=== PATIENT | male | born 1950 | race Caucasian/White ===

== ENCOUNTER 2020-10-16 21:48 | Emergency (ER) | payer OTHER ==
[~2020-10-16 21:48] MED LIST: ATORVASTATIN CA10 MG PO; AUGMENTIN 875-1 EACH PO; CLOPIDOGREL75 MG PO; ENULOSE10 GM/15 M PO; GABAPENTIN800 MG PO; LOPRESSOR 25 MG25 MG PO; MEGACE TAB 40 M40 MG PO; METFORMIN HCL1000 MG PO; MORPHINE SULFAT60 M1 PO; OXYCODONE-ACET1 EACH PO; PLETAL 100 MG100 MG PO; VENTOLIN HFA 66.7 GM INH; VITAMIN D21250 MCG PO
[2020-10-16] MEDS ORDERED: AUGMENTIN 875-1 EACH PO (22:48)
[2020-10-16] MEDS ORDERED: PREDNISONE10 MG PO (22:48)
== END 2020-10-16 22:50 | disposition home or self-care (01) ==
LOC: ER1 21:48
DX: J44.9 Chronic obstructive pulmonary disease, unspecified (principal); I10 Essential (primary) hypertension; E11.9 Type 2 diabetes mellitus without complications; F17.210 Nicotine dependence, cigarettes, uncomplicated; Z79.899 Other long term (current) drug therapy
CPT/HCPCS: 71045; 99283

== ENCOUNTER 2020-12-17 15:17 | Emergency (ER) | payer OTHER ==
[~2020-12-17 15:17] MED LIST changes: +PREDNISONE10 MG PO
== END 2020-12-17 16:45 | disposition left against medical advice (07) ==
LOC: ER1 15:17
DX: R05 Cough (principal); R68.83 Chills (without fever); E11.51 Type 2 diabetes mellitus with diabetic peripheral angiopathy without gangrene; J44.9 Chronic obstructive pulmonary disease, unspecified; F17.200 Nicotine dependence, unspecified, uncomplicated; I10 Essential (primary) hypertension; Z95.5 Presence of coronary angioplasty implant and graft; Z90.49 Acquired absence of other specified parts of digestive tract
CPT/HCPCS: 71046; 93005; 99283

== ENCOUNTER → 2021-03-04 | Outpatient (CLI) | payer OTHER | LOC: KOH-I 09:00 | DX: I71.4 Abdominal aortic aneurysm, without rupture (principal); I25.10 Atherosclerotic heart disease of native coronary artery without angina pectoris; I73.9 Peripheral vascular disease, unspecified | CPT/HCPCS: 93925; 93979 ==

== ENCOUNTER 2021-04-09 17:09 | Inpatient (IN) | payer OTHER ==
[~2021-04-09] VITALS: Ht 175.3 cm; Wt 54.0 kg
[~2021-04-09 17:09] MED LIST changes: -ENULOSE10 GM/15 M PO; -GABAPENTIN800 MG PO; -OXYCODONE-ACET1 EACH PO
[2021-04-09 18:22] LABS: HEMOGLOBIN 15.2 gm/dl (14.0-17.5); RED BLOOD COUNT 4.76 M/UL (4.20-5.50); WHITE BLOOD COUNT 8.9 K/UL (4.5-11.0)
[2021-04-09 19:23] LABS: BUN/CREATININE RATIO 18 (0-10)
[2021-04-10 06:49] LABS: HEMOGLOBIN 16.1 gm/dl (14.0-17.5); RED BLOOD COUNT 5.01 M/UL (4.20-5.50); WHITE BLOOD COUNT 10.9 K/UL (4.5-11.0)
[2021-04-10 07:24] LABS: BUN/CREATININE RATIO 20 (0-10)
[2021-04-10] MEDS ORDERED: GABAPENTIN800 MG PO (09:31)
[2021-04-10] MEDS ORDERED: OXYCODONE-ACET1 EACH PO (09:31)
[2021-04-10] MEDS ORDERED: ENULOSE10 GM/15 M PO (09:32)
--- NOTE | 2021-04-10 10:11 | NUR ---
0815- NOTIFIED DR KELLY OF CRITICAL POTASSIUM 3.0 AND HYPERTENSION. NEW ORDERS NOTED.
[2021-04-10] MEDS ORDERED: SINGULAIR10 MG PO (16:12)
[2021-04-10] MEDS ORDERED: ALBUTEROL2.5 MG/3 M NEB (16:13)
[2021-04-10] MEDS ORDERED: BUMETANIDE1 MG PO (16:14)
[2021-04-10] MEDS ORDERED: TRELEGY ELLIPT1 EACH INH (16:15)
[2021-04-10] MEDS ORDERED: BEVESPI AEROS10.7 GM INH (16:16)
[2021-04-10] MEDS ORDERED: CLARITIN10 MG PO (16:18)
[2021-04-10] MEDS ORDERED: NITROSTAT0.4 MG SL (16:21)
[2021-04-10] MEDS ORDERED: DALIRESP500 MCG PO (16:21)
[2021-04-10] MEDS ORDERED: OMEPRAZOLE20 MG PO (16:21)
[2021-04-10] MEDS ORDERED: MAGOX 400400 MG PO (16:23)
[2021-04-10] MEDS ORDERED: MUCINEX600 MG PO (16:24)
[2021-04-11 03:08] LABS: HEMOGLOBIN 15.8 gm/dl (14.0-17.5); RED BLOOD COUNT 4.92 M/UL (4.20-5.50); WHITE BLOOD COUNT 14.7 K/UL (4.5-11.0)
[2021-04-11 03:55] LABS: BUN/CREATININE RATIO 19 (0-10)
--- NOTE | 2021-04-11 16:00 | NUR ---
1558- NOTIFIED MD OF PATIENT COMPLAINTS WITH LEG PAIN. NEW ORDER NOTED
[2021-04-12 06:28] LABS: RED BLOOD COUNT 5.03 M/UL (4.20-5.50); WHITE BLOOD COUNT 11.4 K/UL (4.5-11.0)
[2021-04-12 07:03] LABS: BUN/CREATININE RATIO 21 (0-10)
[2021-04-13 05:45] LABS: HEMOGLOBIN 16.4 gm/dl (14.0-17.5); RED BLOOD COUNT 5.12 M/UL (4.20-5.50); WHITE BLOOD COUNT 11.9 K/UL (4.5-11.0)
[2021-04-13 06:04] LABS: BUN/CREATININE RATIO 13 (0-10)
[2021-04-13] MEDS ORDERED: IPRAT-ALBUT 0.5-3 ML NEB (07:45)
[2021-04-13] MEDS ORDERED: ACETAMINOPHEN325 MG PO (07:45)
[2021-04-13] MEDS ORDERED: AUGMENTIN 875-1 EACH PO ×2 (09:14→09:15)
[2021-04-14 11:44] LABS: HEMOGLOBIN 15.9 gm/dl (14.0-17.5); RED BLOOD COUNT 4.97 M/UL (4.20-5.50); WHITE BLOOD COUNT 12.4 K/UL (4.5-11.0)
[2021-04-14 12:20] LABS: BUN/CREATININE RATIO 14 (0-10)
[2021-04-15 08:23] LABS: WHITE BLOOD COUNT 9.7 K/UL (4.5-11.0)
[2021-04-15 08:24] LABS: RED BLOOD COUNT 4.47 M/UL (4.20-5.50)
[2021-04-15 08:45] LABS: BUN/CREATININE RATIO 15 (0-10)
[2021-04-16 06:48] LABS: RED BLOOD COUNT 4.41 M/UL (4.20-5.50); WHITE BLOOD COUNT 10.8 K/UL (4.5-11.0)
[2021-04-16 07:27] LABS: BUN/CREATININE RATIO 8 (0-10)
[2021-04-17 03:50] LABS: HEMOGLOBIN 13.2 gm/dl (14.0-17.5); RED BLOOD COUNT 4.18 M/UL (4.20-5.50); WHITE BLOOD COUNT 11.8 K/UL (4.5-11.0)
[2021-04-17 04:28] LABS: BUN/CREATININE RATIO 13 (0-10)
[2021-04-17] MEDS ORDERED: MEGACE 400400 MG/10 PO (08:56)
[2021-04-17] MEDS ORDERED: IPRAT-ALBUT 0.5-3 ML NEB ×2 (08:56→09:07)
[2021-04-17] MEDS ORDERED: VITAMIN B-121000 MCG PO (08:56)
[2021-04-17] MEDS ORDERED: K-TAB ER20 MEQ PO (08:56)
[2021-04-17] MEDS ORDERED: NEURONTIN 100100 MG PO (08:56)
[2021-04-17] MEDS ORDERED: AUGMENTIN 875-1 EACH PO (08:56)
[2021-04-17] MEDS ORDERED: BUDESONIDE0.5 MG/2 M NEB (09:07)
[2021-04-17] MEDS ORDERED: PROTONIX 40 MG40 M1 PO (09:17)
--- NOTE | 2021-04-17 15:19 | NUR ---
EMS CONTACTED ND STATED THAT IT WOULD BE AROUND 3 HOURS FOR TRANSPORT AT THIS TIME. 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
[2021-04-17] MEDS ORDERED: LIPITOR40 MG PO (17:06)
== END 2021-04-17 19:51 | DRG 91 ==
LOC: ER1 17:09 → CDU 22:32 → ER1 22:32 → CDU 04-10 01:43 → MED SURG 4 04-10 01:43 → ER1 04-10 01:43 → MED SURG 4 04-10 04:56 → CDU 04-10 04:56 → MED SURG 4 04-17 19:51
PROVIDERS: Family Medicine; Internal Medicine; Surgery; ADMIT Internal Medicine
PROC: 0DB78ZX Excision of Stomach, Pylorus, Via Natural or Artificial Opening Endoscopic, Diagnostic (ICD-10-PCS; 2021-04-16)
PROC: 0DB68ZX Excision of Stomach, Via Natural or Artificial Opening Endoscopic, Diagnostic (ICD-10-PCS; principal; 2021-04-16 08:30)
DX: G92 Toxic encephalopathy (principal); E43 Unspecified severe protein-calorie malnutrition; J18.9 Pneumonia, unspecified organism; Z20.822 Contact with and (suspected) exposure to COVID-19; R64 Cachexia; Z68.1 Body mass index [BMI] 19.9 or less, adult; J44.0 Chronic obstructive pulmonary disease with (acute) lower respiratory infection; I10 Essential (primary) hypertension; I25.10 Atherosclerotic heart disease of native coronary artery without angina pectoris; F17.210 Nicotine dependence, cigarettes, uncomplicated; T40.2X5A Adverse effect of other opioids, initial encounter; F03.90 Unspecified dementia, unspecified severity, without behavioral disturbance, psychotic disturbance, mood disturbance, and anxiety; K21.00 Gastro-esophageal reflux disease with esophagitis, without bleeding; K29.00 Acute gastritis without bleeding; E87.6 Hypokalemia; G89.4 Chronic pain syndrome; E55.9 Vitamin D deficiency, unspecified; N20.0 Calculus of kidney; J44.9 Chronic obstructive pulmonary disease, unspecified; R31.29 Other microscopic hematuria; E11.51 Type 2 diabetes mellitus with diabetic peripheral angiopathy without gangrene; Z79.4 Long term (current) use of insulin; Z95.5 Presence of coronary angioplasty implant and graft; Z95.1 Presence of aortocoronary bypass graft
CPT/HCPCS: 36415; 36600; 70450; 70551; 71045; 71250; 74019; 80048; 80053; 80307; 81001; 82140; 82550; 82553; 82607; 82803; 82962; 83735; 83874; 84132; 84439; 84443; 84484; 85025; 85027; 86140; 93005; 94640; 94664; 94760; 96374; 96375; 97110-GP-CQ; 97116-GP-CQ; 97162; 97530; 99285; J0696; J1650; J2310; J2405; J2704; J3420; J3475; J3480; J7030; U0002

== ENCOUNTER 2021-07-02 16:11 | Inpatient (IN) | payer OTHER ==
[~2021-07-02] VITALS: Ht 175.3 cm; Wt 62.6 kg
[~2021-07-02 16:11] MED LIST changes: +ACETAMINOPHEN325 MG PO; +ALBUTEROL2.5 MG/3 M NEB; +BEVESPI AEROS10.7 GM INH; +BUDESONIDE0.5 MG/2 M NEB; +BUMETANIDE1 MG PO; +CLARITIN10 MG PO; +DALIRESP500 MCG PO; +ENULOSE10 GM/15 M PO; +GABAPENTIN800 MG PO; +IPRAT-ALBUT 0.5-3 ML NEB; +K-TAB ER20 MEQ PO; +LIPITOR40 MG PO; +MAGOX 400400 MG PO; +MEGACE 400400 MG/10 PO; +MUCINEX600 MG PO; +NEURONTIN 100100 MG PO; +NITROSTAT0.4 MG SL; +OMEPRAZOLE20 MG PO; +OXYCODONE-ACET1 EACH PO; +PROTONIX 40 MG40 M1 PO; +SINGULAIR10 MG PO; +TRELEGY ELLIPT1 EACH INH; +VITAMIN B-121000 MCG PO
[2021-07-02 18:48] LABS: HEMOGLOBIN 12.6 gm/dl (14.0-17.5); RED BLOOD COUNT 4.1 M/UL (4.20-5.50); WHITE BLOOD COUNT 17.5 K/UL (4.5-11.0)
[2021-07-02 19:17] LABS: BUN/CREATININE RATIO 24 (0-10)
[2021-07-03 03:06] LABS: HEMOGLOBIN 11.3 gm/dl (14.0-17.5); RED BLOOD COUNT 3.62 M/UL (4.20-5.50); WHITE BLOOD COUNT 13.3 K/UL (4.5-11.0)
[2021-07-03 03:31] LABS: BUN/CREATININE RATIO 22 (0-10)
[2021-07-04 02:26] LABS: HEMOGLOBIN 11.5 gm/dl (14.0-17.5); RED BLOOD COUNT 3.75 M/UL (4.20-5.50); WHITE BLOOD COUNT 10.4 K/UL (4.5-11.0)
[2021-07-04 02:47] LABS: BUN/CREATININE RATIO 12 (0-10)
[2021-07-05 07:09] LABS: HEMOGLOBIN 11.9 gm/dl (14.0-17.5); RED BLOOD COUNT 3.83 M/UL (4.20-5.50)
[2021-07-05 07:23] LABS: BUN/CREATININE RATIO 19 (0-10)
[2021-07-05 07:24] LABS: WHITE BLOOD COUNT 7.7 K/UL (4.5-11.0)
[2021-07-05] MEDS ORDERED: ENDOCET 7.5-321 EACH PO (10:49)
[2021-07-05] MEDS ORDERED: LOVENOX40 MG/0.4 SQ (10:49)
[2021-07-06 04:14] LABS: HEMOGLOBIN 11.3 gm/dl (14.0-17.5); RED BLOOD COUNT 3.62 M/UL (4.20-5.50)
[2021-07-06 04:31] LABS: BUN/CREATININE RATIO 17 (0-10)
[2021-07-07 06:53] LABS: HEMOGLOBIN 12.6 gm/dl (14.0-17.5)
[2021-07-07 06:54] LABS: RED BLOOD COUNT 4.06 M/UL (4.20-5.50)
[2021-07-07 07:33] LABS: BUN/CREATININE RATIO 24 (0-10)
[2021-07-08 02:34] LABS: WHITE BLOOD COUNT 11.9 K/UL (4.5-11.0)
[2021-07-08 02:49] LABS: RED BLOOD COUNT 3.6 M/UL (4.20-5.50)
[2021-07-08 03:00] LABS: BUN/CREATININE RATIO 26 (0-10)
[2021-07-08] MEDS ORDERED: BUMETANIDE1 MG PO (10:57)
[2021-07-08] MEDS ORDERED: OMNICEF 300 MG300 MG PO (10:58)
[2021-07-08] MEDS ORDERED: ALBUTEROL1.25 MG/3 INH (13:20)
[2021-07-08] MEDS ORDERED: FUROSEMIDE20 MG PO (13:41)
[2021-07-08] MEDS ORDERED: METOCLOPRAMIDE H5 MG PO (13:42)
[2021-07-08] MEDS ORDERED: TRELEGY ELLIPT1 EACH INH (13:42)
[2021-07-08] MEDS ORDERED: BEVESPI AEROS10.7 GM INH (13:43)
[2021-07-08] MEDS ORDERED: MS CONTIN TAB S60 MG PO (13:43)
[2021-07-08] MEDS ORDERED: GABAPENTIN300 MG PO (13:44)
[2021-07-08] MEDS ORDERED: DALIRESP 500500 MCG PO (14:02)
[2021-07-08] MEDS ORDERED: MEGACE 400400 MG/10 PO (14:02)
[2021-07-08] MEDS ORDERED: MAG-OX 400 TAB400 MG PO (14:02)
[2021-07-08] MEDS ORDERED: PERCOCET 5/325 T1 EA PO (14:26)
[2021-07-08] MEDS ORDERED: VITAMIN D21250 MCG PO (14:27)
[2021-07-08] MEDS ORDERED: CLARITIN10 MG PO (14:27)
[2021-07-08] MEDS ORDERED: VITAMIN B-121000 MC2 SL (14:28)
[2021-07-08] MEDS ORDERED: PROTONIX40 MG PO (14:29)
[2021-07-08] MEDS ORDERED: PROVENTIL HFA6.7 GM INH (14:30)
[2021-07-08] MEDS ORDERED: LOVENOX40 MG/0.4 SQ (15:20)
[2021-07-08] MEDS ORDERED: GABAPENTIN100 MG PO (15:20)
== END 2021-07-08 16:53 | DRG 480 ==
LOC: ER1 16:11 → CDU 20:18 → M/S 20:18
PROVIDERS: Internal Medicine; Orthopaedic Surgery; Physician Assistant; Preventive Medicine Occupational Medicine; ADMIT Internal Medicine
PROC: B24BZZZ Ultrasonography of Heart with Aorta (ICD-10-PCS; 2021-07-03)
PROC: 0QS604Z Reposition Right Upper Femur with Internal Fixation Device, Open Approach (ICD-10-PCS; principal; 2021-07-05 09:09)
DX: S72.141A Displaced intertrochanteric fracture of right femur, initial encounter for closed fracture (principal); I50.23 Acute on chronic systolic (congestive) heart failure; J18.9 Pneumonia, unspecified organism; D62 Acute posthemorrhagic anemia; E44.0 Moderate protein-calorie malnutrition; E87.6 Hypokalemia; Z20.822 Contact with and (suspected) exposure to COVID-19; I11.0 Hypertensive heart disease with heart failure; I25.10 Atherosclerotic heart disease of native coronary artery without angina pectoris; I73.9 Peripheral vascular disease, unspecified; K29.70 Gastritis, unspecified, without bleeding; I08.1 Rheumatic disorders of both mitral and tricuspid valves; K21.9 Gastro-esophageal reflux disease without esophagitis; D51.3 Other dietary vitamin B12 deficiency anemia; F17.210 Nicotine dependence, cigarettes, uncomplicated; J44.9 Chronic obstructive pulmonary disease, unspecified; E11.9 Type 2 diabetes mellitus without complications; W18.30XA Fall on same level, unspecified, initial encounter; Y93.89 Activity, other specified; Z99.81 Dependence on supplemental oxygen; Z95.1 Presence of aortocoronary bypass graft; Z95.5 Presence of coronary angioplasty implant and graft; Y92.89 Other specified places as the place of occurrence of the external cause; Z90.49 Acquired absence of other specified parts of digestive tract; Y99.8 Other external cause status; Z87.442 Personal history of urinary calculi; Z79.4 Long term (current) use of insulin; Z82.49 Family history of ischemic heart disease and other diseases of the circulatory system
CPT/HCPCS: ECHO; 36415; 36600; 70450; 71045; 71250; 73502; 73552; 76000; 80048; 80053; 80307; 81001; 82009; 82140; 82550; 82553; 82803; 82962; 83036; 83605; 83690; 83735; 83874; 83880; 84132; 84484; 85025; 85027; 85652; 86140; 86850; 86900; 86901; 87040; 87086; 93005; 93306; 94640; 94664; 94760; 94762; 96374; 97110; 97110-GP-CQ; 97116-GP-CQ; 97162; 97166; 97530; 97530-GP-CQ; 99285; G0480; J0456; J0696; J1650; J2270; J3475; J3486; J7030; J7120; U0002

== ENCOUNTER 2021-07-19 03:09 | Inpatient (IN) | payer OTHER ==
[~2021-07-19] VITALS: Ht 175.3 cm; Wt 51.3 kg
[~2021-07-19 03:09] MED LIST changes: +ALBUTEROL1.25 MG/3 INH; +DALIRESP 500500 MCG PO; +ENDOCET 7.5-321 EACH PO; +FUROSEMIDE20 MG PO; +GABAPENTIN100 MG PO; +GABAPENTIN300 MG PO; +LOVENOX40 MG/0.4 SQ; +MAG-OX 400 TAB400 MG PO; +METOCLOPRAMIDE H5 MG PO; +MS CONTIN TAB S60 MG PO; +OMNICEF 300 MG300 MG PO; +PERCOCET 5/325 T1 EA PO; +PROTONIX40 MG PO; +PROVENTIL HFA6.7 GM INH; +VITAMIN B-121000 MC2 SL
[2021-07-19 03:58] LABS: HEMOGLOBIN 12.5 gm/dl (14.0-17.5); RED BLOOD COUNT 4.02 M/UL (4.20-5.50); WHITE BLOOD COUNT 18.9 K/UL (4.5-11.0)
[2021-07-19 04:15] LABS: BUN/CREATININE RATIO 35 (0-10)
[2021-07-19] MEDS ORDERED: METOPROLOL TART25 MG PO (10:19)
[2021-07-19] MEDS ORDERED: VITAMIN D21250 MCG PO (10:19)
[2021-07-19] MEDS ORDERED: ENOXAPARIN40 MG/0.4 SQ (10:19)
[2021-07-19] MEDS ORDERED: LACTULOSE10 GM/15 M PO (10:20)
[2021-07-19] MEDS ORDERED: ATORVASTATIN CA40 MG PO (10:20)
[2021-07-19] MEDS ORDERED: CLOPIDOGREL75 MG PO (10:20)
[2021-07-19] MEDS ORDERED: MONTELUKAST SOD10 MG PO (10:21)
[2021-07-19] MEDS ORDERED: PROTONIX40 MG PO (10:21)
[2021-07-19] MEDS ORDERED: NITROGLYCERIN0.4 MG SL (10:21)
[2021-07-19] MEDS ORDERED: MUCINEX600 MG PO (10:22)
[2021-07-19] MEDS ORDERED: TRELEGY ELLIPT1 EACH INH (10:22)
[2021-07-19] MEDS ORDERED: DALIRESP500 MCG PO (10:23)
[2021-07-19] MEDS ORDERED: METFORMIN HCL1000 MG PO (10:23)
[2021-07-19] MEDS ORDERED: MORPHINE SULFAT30 M4 PO (10:24)
[2021-07-19] MEDS ORDERED: OXYCODON-ACETA1 EAC1 PO (10:24)
[2021-07-19] MEDS ORDERED: VITAMIN B-121000 MCG PO (10:25)
[2021-07-19] MEDS ORDERED: MEGACE 400400 MG/10 PO (10:25)
[2021-07-20 06:15] LABS: HEMOGLOBIN 11.5 gm/dl (14.0-17.5); RED BLOOD COUNT 3.76 M/UL (4.20-5.50)
[2021-07-20 06:19] LABS: WHITE BLOOD COUNT 11.1 K/UL (4.5-11.0)
[2021-07-20 07:12] LABS: BUN/CREATININE RATIO 29 (0-10)
--- NOTE | 2021-07-20 18:43 | NUR ---
RUPERTO REMOVED TO RIGHT HIP AND STERI STRIPS APPLIED, PT TOLERATED WELL.
[2021-07-21 05:55] LABS: HEMOGLOBIN 10.9 gm/dl (14.0-17.5); RED BLOOD COUNT 3.67 M/UL (4.20-5.50); WHITE BLOOD COUNT 8.5 K/UL (4.5-11.0)
[2021-07-21 06:39] LABS: BUN/CREATININE RATIO 20 (0-10)
[2021-07-22 05:41] LABS: HEMOGLOBIN 10.9 gm/dl (14.0-17.5); RED BLOOD COUNT 3.6 M/UL (4.20-5.50); WHITE BLOOD COUNT 8.3 K/UL (4.5-11.0)
[2021-07-22 06:32] LABS: BUN/CREATININE RATIO 22 (0-10)
[2021-07-23 06:58] LABS: HEMOGLOBIN 11.8 gm/dl (14.0-17.5); RED BLOOD COUNT 3.89 M/UL (4.20-5.50)
[2021-07-23 07:22] LABS: BUN/CREATININE RATIO 21 (0-10)
[2021-07-24 05:20] LABS: HEMOGLOBIN 12.4 gm/dl (14.0-17.5); RED BLOOD COUNT 4.09 M/UL (4.20-5.50); WHITE BLOOD COUNT 8.7 K/UL (4.5-11.0)
[2021-07-24 05:47] LABS: BUN/CREATININE RATIO 25 (0-10)
[2021-07-25 05:38] LABS: HEMOGLOBIN 11.6 gm/dl (14.0-17.5); RED BLOOD COUNT 3.83 M/UL (4.20-5.50); WHITE BLOOD COUNT 7.8 K/UL (4.5-11.0)
[2021-07-25 07:21] LABS: BUN/CREATININE RATIO 28 (0-10)
[2021-07-26 06:30] LABS: HEMOGLOBIN 12.1 gm/dl (14.0-17.5); RED BLOOD COUNT 3.96 M/UL (4.20-5.50); WHITE BLOOD COUNT 7.2 K/UL (4.5-11.0)
[2021-07-26 07:06] LABS: BUN/CREATININE RATIO 30 (0-10)
[2021-07-27 06:08] LABS: HEMOGLOBIN 10.4 gm/dl (14.0-17.5); RED BLOOD COUNT 3.46 M/UL (4.20-5.50); WHITE BLOOD COUNT 6.9 K/UL (4.5-11.0)
[2021-07-27 06:49] LABS: BUN/CREATININE RATIO 24 (0-10)
[2021-07-28 09:04] LABS: HEMOGLOBIN 10.3 gm/dl (14.0-17.5); RED BLOOD COUNT 3.36 M/UL (4.20-5.50); WHITE BLOOD COUNT 7.9 K/UL (4.5-11.0)
[2021-07-28 10:05] LABS: BUN/CREATININE RATIO 21 (0-10)
[2021-07-29 06:49] LABS: RED BLOOD COUNT 3.34 M/UL (4.20-5.50); WHITE BLOOD COUNT 7.9 K/UL (4.5-11.0)
[2021-07-29 07:25] LABS: BUN/CREATININE RATIO 18 (0-10)
[2021-07-30 07:47] LABS: BUN/CREATININE RATIO 17 (0-10)
[2021-07-30] MEDS ORDERED: BROVANA15 MCG/2 M NEB (12:14)
[2021-07-30] MEDS ORDERED: ASPIRIN EC81 MG PO (12:14)
[2021-07-30] MEDS ORDERED: COZAAR 25MG TAB25 MG PO (12:14)
[2021-07-30] MEDS ORDERED: GABAPENTIN100 MG PO (12:14)
[2021-07-30] MEDS ORDERED: HYDROCODON-ACE1 EAC2 PO (12:14)
[2021-07-30] MEDS ORDERED: IPRAT-ALBUT 0.5-3 ML NEB (12:14)
[2021-07-30] MEDS ORDERED: HUMALOG 10100 UNITS/ SC (12:14)
[2021-07-30 12:53] LABS: HEMOGLOBIN 10.7 gm/dl (14.0-17.5); RED BLOOD COUNT 3.53 M/UL (4.20-5.50)
== END 2021-07-30 23:00 | DRG 871 ==
LOC: ER1 03:09 → CDU 05:29 → MED SURG 4 05:29
PROVIDERS: Family Medicine; Internal Medicine; Physician Assistant; ADMIT Internal Medicine
DX: A41.9 Sepsis, unspecified organism (principal); G93.41 Metabolic encephalopathy; I50.23 Acute on chronic systolic (congestive) heart failure; Z20.822 Contact with and (suspected) exposure to COVID-19; J18.9 Pneumonia, unspecified organism; E43 Unspecified severe protein-calorie malnutrition; J69.0 Pneumonitis due to inhalation of food and vomit; I42.9 Cardiomyopathy, unspecified; Z68.1 Body mass index [BMI] 19.9 or less, adult; I11.0 Hypertensive heart disease with heart failure; E11.65 Type 2 diabetes mellitus with hyperglycemia; I35.0 Nonrheumatic aortic (valve) stenosis; E87.6 Hypokalemia; Z66 Do not resuscitate; I25.10 Atherosclerotic heart disease of native coronary artery without angina pectoris; I73.9 Peripheral vascular disease, unspecified; Y95 Nosocomial condition; E11.51 Type 2 diabetes mellitus with diabetic peripheral angiopathy without gangrene; E53.8 Deficiency of other specified B group vitamins; I65.22 Occlusion and stenosis of left carotid artery; J43.9 Emphysema, unspecified; F17.210 Nicotine dependence, cigarettes, uncomplicated; R91.8 Other nonspecific abnormal finding of lung field; I71.4 Abdominal aortic aneurysm, without rupture; R53.81 Other malaise; K29.50 Unspecified chronic gastritis without bleeding; K21.9 Gastro-esophageal reflux disease without esophagitis; J30.9 Allergic rhinitis, unspecified; Z95.5 Presence of coronary angioplasty implant and graft; Z90.49 Acquired absence of other specified parts of digestive tract; Z98.890 Other specified postprocedural states; Z82.49 Family history of ischemic heart disease and other diseases of the circulatory system; Z79.82 Long term (current) use of aspirin; Z79.899 Other long term (current) drug therapy
CPT/HCPCS: 36415; 36600; 51702; 70450; 71045; 71046; 71250; 73502; 80048; 80053; 80202; 81001; 82550; 82553; 82803; 82962; 83605; 83735; 83874; 83880; 84100; 84132; 84439; 84443; 84484; 85025; 85027; 85610; 86140; 87040; 92526; 92610; 93005; 94640; 94664; 94760; 97110; 97110-GP-CQ; 97161; 97166; 97530; 97530-GP-CQ; 99285; J1335; J1650; J2270; J3370; J7030; J7040; J7050; U0002

== ENCOUNTER 2021-08-21 15:37 | Inpatient (IN) | payer OTHER ==
[~2021-08-21] VITALS: Ht 175.3 cm; Wt 44.9 kg
[~2021-08-21 15:37] MED LIST changes: +ASPIRIN EC81 MG PO; +ATORVASTATIN CA40 MG PO; +BROVANA15 MCG/2 M NEB; +COZAAR 25MG TAB25 MG PO; +ENOXAPARIN40 MG/0.4 SQ; +HUMALOG 10100 UNITS/ SC; +HYDROCODON-ACE1 EAC2 PO; +LACTULOSE10 GM/15 M PO; +METOPROLOL TART25 MG PO; +MONTELUKAST SOD10 MG PO; +MORPHINE SULFAT30 M4 PO; +NITROGLYCERIN0.4 MG SL; +OXYCODON-ACETA1 EAC1 PO
[2021-08-21 17:04] LABS: HEMOGLOBIN 10.6 gm/dl (14.0-17.5); RED BLOOD COUNT 3.53 M/UL (4.20-5.50); WHITE BLOOD COUNT 9.8 K/UL (4.5-11.0)
[2021-08-21 17:36] LABS: BUN/CREATININE RATIO 21 (0-10)
[2021-08-22 04:32] LABS: HEMOGLOBIN 10.3 gm/dl (14.0-17.5); RED BLOOD COUNT 3.47 M/UL (4.20-5.50); WHITE BLOOD COUNT 8.9 K/UL (4.5-11.0)
[2021-08-22 04:58] LABS: BUN/CREATININE RATIO 12 (0-10)
[2021-08-22] MEDS ORDERED: GABAPENTIN400 MG PO (10:10)
[2021-08-22] MEDS ORDERED: HYDROCODON-ACE1 EAC6 PO (10:11)
[2021-08-22] MEDS ORDERED: LOSARTAN POTASS25 MG PO (10:16)
[2021-08-22] MEDS ORDERED: METFORMIN HCL500 MG PO (10:17)
[2021-08-22] MEDS ORDERED: NITROGLYCERIN0.4 MG SL (10:17)
[2021-08-22] MEDS ORDERED: BEVESPI AEROS10.7 GM INH (10:19)
[2021-08-22] MEDS ORDERED: POTASSIUM CHLO20 ME2 PO (10:21)
[2021-08-22] MEDS ORDERED: GUAIFENESI100 MG/5 M PO (10:22)
[2021-08-22] MEDS ORDERED: CLONAZEPAM1 MG PO (10:23)
[2021-08-22] MEDS ORDERED: DOXYCYCLINE MO100 MG PO (10:23)
[2021-08-22] MEDS ORDERED: PROAIR HFA8.5 GM INH (10:24)
[2021-08-22] MEDS ORDERED: AUGMENTIN 875-1 EACH PO (14:00)
== END 2021-08-22 16:05 | disposition home or self-care (01) | DRG 193 ==
LOC: ER1 15:37 → CDU 20:55
PROVIDERS: Preventive Medicine Occupational Medicine; ADMIT Internal Medicine
DX: J18.9 Pneumonia, unspecified organism (principal); J96.21 Acute and chronic respiratory failure with hypoxia; Z20.822 Contact with and (suspected) exposure to COVID-19; J44.0 Chronic obstructive pulmonary disease with (acute) lower respiratory infection; N39.0 Urinary tract infection, site not specified; G93.49 Other encephalopathy; E44.0 Moderate protein-calorie malnutrition; Z68.1 Body mass index [BMI] 19.9 or less, adult; I50.22 Chronic systolic (congestive) heart failure; I11.0 Hypertensive heart disease with heart failure; E11.9 Type 2 diabetes mellitus without complications; I25.10 Atherosclerotic heart disease of native coronary artery without angina pectoris; F03.90 Unspecified dementia, unspecified severity, without behavioral disturbance, psychotic disturbance, mood disturbance, and anxiety; D63.8 Anemia in other chronic diseases classified elsewhere; D64.9 Anemia, unspecified; K21.9 Gastro-esophageal reflux disease without esophagitis; I95.9 Hypotension, unspecified; Z95.5 Presence of coronary angioplasty implant and graft; Z90.49 Acquired absence of other specified parts of digestive tract; Z98.890 Other specified postprocedural states; Z79.4 Long term (current) use of insulin; Z79.899 Other long term (current) drug therapy; Z79.82 Long term (current) use of aspirin; Z79.02 Long term (current) use of antithrombotics/antiplatelets
CPT/HCPCS: 36415; 36600; 70450; 71045; 80053; 80307; 81001; 82009; 82140; 82550; 82553; 82803; 83605; 83690; 83735; 83874; 83880; 84439; 84443; 84484; 85025; 85652; 86140; 87040; 87086; 93005; 94640; 94664; 94760; 96374; 96375; 99285; G0480; J0456; J0692; J0696; J7030; U0002

== ENCOUNTER 2022-01-17 18:35 | Inpatient (IN) | payer OTHER ==
[~2022-01-17] VITALS: Ht 175.3 cm; Wt 76.4 kg
[~2022-01-17 18:35] MED LIST changes: +CLONAZEPAM1 MG PO; +DOXYCYCLINE MO100 MG PO; +GABAPENTIN600 MG PO; +GUAIFENESI100 MG/5 M PO; +HYDROCODON-ACE1 EAC6 PO; +LOSARTAN POTASS25 MG PO; +METFORMIN HCL500 MG PO; +POTASSIUM CHLO20 ME2 PO; +PROAIR HFA8.5 GM INH
[2022-01-17 19:18] LABS: RED BLOOD COUNT 4.84 M/UL (4.20-5.50); WHITE BLOOD COUNT 8.3 K/UL (4.5-11.0)
[2022-01-17 19:59] LABS: BUN/CREATININE RATIO 17 (0-10)
[2022-01-18 06:14] LABS: HEMOGLOBIN 12.8 gm/dl (14.0-17.5); RED BLOOD COUNT 4.45 M/UL (4.20-5.50); WHITE BLOOD COUNT 10.2 K/UL (4.5-11.0)
[2022-01-18 06:38] LABS: BUN/CREATININE RATIO 15 (0-10)
[2022-01-18] MEDS ORDERED: OXYCODONE HCL15 MG PO (16:55)
[2022-01-18] MEDS ORDERED: TRELEGY ELLIPT1 EACH INH (16:56)
[2022-01-18] MEDS ORDERED: FUROSEMIDE20 MG PO (16:57)
[2022-01-18] MEDS ORDERED: METFORMIN HCL500 MG PO (16:58)
[2022-01-18] MEDS ORDERED: LORATADINE10 MG PO (16:58)
[2022-01-20 06:40] LABS: HEMOGLOBIN 11.6 gm/dl (14.0-17.5); RED BLOOD COUNT 4.06 M/UL (4.20-5.50); WHITE BLOOD COUNT 11.3 K/UL (4.5-11.0)
[2022-01-20 06:52] LABS: BUN/CREATININE RATIO 29 (0-10)
[2022-01-21 04:01] LABS: HEMOGLOBIN 11.7 gm/dl (14.0-17.5); RED BLOOD COUNT 4.14 M/UL (4.20-5.50)
[2022-01-21 04:02] LABS: WHITE BLOOD COUNT 8.3 K/UL (4.5-11.0)
[2022-01-21 04:08] LABS: BUN/CREATININE RATIO 23 (0-10)
[2022-01-21] MEDS ORDERED: ELIQUIS 5 MG TAB5 MG PO (09:50)
[2022-01-21] MEDS ORDERED: HYDROCODON-ACE1 EAC6 PO ×2 (09:50→09:53)
[2022-01-21] MEDS ORDERED: ATORVASTATIN CA20 MG PO (09:56)
== END 2022-01-21 15:45 | DRG 481 ==
LOC: ER1 18:35 → M/S 20:33 → CDU 20:33 → M/S 01-18 00:58
PROVIDERS: Internal Medicine; Orthopaedic Surgery; Physician Assistant; ADMIT Internal Medicine
PROC: 0QS706Z Reposition Left Upper Femur with Intramedullary Internal Fixation Device, Open Approach (ICD-10-PCS; principal; 2022-01-18 10:30)
DX: S72.142A Displaced intertrochanteric fracture of left femur, initial encounter for closed fracture (principal); I50.22 Chronic systolic (congestive) heart failure; E44.0 Moderate protein-calorie malnutrition; W01.0XXA Fall on same level from slipping, tripping and stumbling without subsequent striking against object, initial encounter; I25.10 Atherosclerotic heart disease of native coronary artery without angina pectoris; Z20.822 Contact with and (suspected) exposure to COVID-19; I73.9 Peripheral vascular disease, unspecified; M54.9 Dorsalgia, unspecified; G89.29 Other chronic pain; J44.9 Chronic obstructive pulmonary disease, unspecified; K29.80 Duodenitis without bleeding; J30.2 Other seasonal allergic rhinitis; K21.9 Gastro-esophageal reflux disease without esophagitis; I11.0 Hypertensive heart disease with heart failure; E11.51 Type 2 diabetes mellitus with diabetic peripheral angiopathy without gangrene; J60 Coalworker's pneumoconiosis; F17.200 Nicotine dependence, unspecified, uncomplicated; Z99.81 Dependence on supplemental oxygen; Z90.49 Acquired absence of other specified parts of digestive tract; Z98.890 Other specified postprocedural states; Z95.1 Presence of aortocoronary bypass graft; Z79.01 Long term (current) use of anticoagulants; Z79.4 Long term (current) use of insulin; Z79.84 Long term (current) use of oral hypoglycemic drugs; Z68.24 Body mass index [BMI] 24.0-24.9, adult
CPT/HCPCS: 36415; 51702; 70450; 71045; 73502; 76000; 80048; 80053; 81001; 82550; 82553; 82962; 83540; 83550; 83605; 83735; 83880; 84484; 85025; 85027; 85610; 85730; 86850; 86900; 86901; 87040; 87086; 93005; 94640; 94760; 96374; 96375; 97110; 97110-GP-CQ; 97116; 97116-GP-CQ; 97161; 97166; 97530; 97535; 99285; C1713; J0171; J0456; J0690; J0696; J1100; J1170; J1650; J1940; J2001; J2270; J2370; J2405; J2704; J2795; J3010; J7030; J7120; U0002

== ENCOUNTER → 2022-04-07 | Outpatient (CLI) | payer OTHER ==
[~2022-04-07] MED LIST changes: +ATORVASTATIN CA20 MG PO; +ELIQUIS 5 MG TAB5 MG PO; +LORATADINE10 MG PO; +OXYCODONE HCL15 MG PO
== END ==
LOC: NM 07:39
DX: M48.56XA Collapsed vertebra, not elsewhere classified, lumbar region, initial encounter for fracture (principal)
CPT/HCPCS: 78300; A9503

== ENCOUNTER 2022-05-09 12:38 | Emergency (ER) | payer OTHER ==
[2022-05-09 13:30] LABS: HEMOGLOBIN 14.5 gm/dl (14.0-17.5); RED BLOOD COUNT 4.76 M/UL (4.20-5.50); WHITE BLOOD COUNT 6.7 K/UL (4.5-11.0)
[2022-05-09 13:53] LABS: BUN/CREATININE RATIO 19 (0-10)
== END 2022-05-09 16:30 | disposition home or self-care (01) ==
LOC: ER1 12:38
PROVIDERS: Physician Assistant
DX: M54.50 Low back pain, unspecified (principal); G89.29 Other chronic pain; R10.11 Right upper quadrant pain; E11.9 Type 2 diabetes mellitus without complications; I25.2 Old myocardial infarction; E78.5 Hyperlipidemia, unspecified; J44.9 Chronic obstructive pulmonary disease, unspecified; I10 Essential (primary) hypertension; F17.210 Nicotine dependence, cigarettes, uncomplicated
CPT/HCPCS: 72131; 80053; 81001; 83690; 85025; 93005; 96374; 96375; 99284; J1885; J2270; J2405; Q9967

== ENCOUNTER → 2022-05-17 | Outpatient (CLI) | payer OTHER ==
[2022-05-17 13:49] LABS: HEMOGLOBIN 13.6 gm/dl (14.0-17.5); RED BLOOD COUNT 4.53 M/UL (4.20-5.50); WHITE BLOOD COUNT 11.1 K/UL (4.5-11.0)
[2022-05-17 14:15] LABS: BUN/CREATININE RATIO 19 (0-10)
== END ==
LOC: LAB 12:52
PROVIDERS: Neurological Surgery
DX: M48.56XA Collapsed vertebra, not elsewhere classified, lumbar region, initial encounter for fracture (principal); J60 Coalworker's pneumoconiosis; E11.9 Type 2 diabetes mellitus without complications; I51.9 Heart disease, unspecified; Z79.01 Long term (current) use of anticoagulants; R91.8 Other nonspecific abnormal finding of lung field; R94.31 Abnormal electrocardiogram [ECG] [EKG]
CPT/HCPCS: 36415; 71046; 80048; 81001; 85025; 85610; 85730; 93005